=== PATIENT | female | born 1940 | race Two or more races ===

== ENCOUNTER 2019-11-09 09:52 | Inpatient (IN) | payer MEDICARE, OTHER ==
[~2019-11-09] VITALS: Ht 152.4 cm; Wt 98.9 kg
[2019-11-09] VITALS (17 sets, daily range): BP systolic 128–167; BP diastolic 55–92
--- NOTE | 2019-11-09 10:10 | NUR ---
[facility] to ER, facility called 911 - C/O SOB and hypoxia during PT treatment this morning. Patient a/ox4, vietnamese speaking. Was on an NRB on arrival, downgraded to 4lpm VIA NC with spo2 of 96%. Patient's breathing rapid and mild labored. Attached to the electronic device monitor. Vitals stable.
--- NOTE | 2019-11-09 10:11 | NUR ---
DR. SERRANO AT BEDSIDE FOR EVAL.
[2019-11-09] MEDS ORDERED: DULO60CA45 PO (10:20)
[2019-11-09] MEDS ORDERED: DEXL60CA3 PO (10:20)
[2019-11-09] MEDS ORDERED: CHOL10002 PO (10:20)
[2019-11-09] MEDS ORDERED: NEBI10TA2 PO (10:20)
[2019-11-09] MEDS ORDERED: CLON0.2T PO (10:20)
[2019-11-09] MEDS ORDERED: ATOR40TA PO (10:20)
[2019-11-09] MEDS ORDERED: AMLO10TA7 PO (10:20)
--- NOTE | 2019-11-09 10:20 | NUR ---
IV LINE ESTABLISHED ON LEFT AC G18, BLOOD DRAWN AND SENT TO LAB.
[2019-11-09 10:25] LABS: BASOPHILS # (AUTO) 0.1 /CMM (0.0-0.2); EOSINOPHILS % (AUTO) 2.4 % (0.0-6.0); HEMATOCRIT 25 % (33-45); HEMOGLOBIN 8.4 g/dL (11.5-14.8); LYMPHOCYTES % (AUTO) 19.4 % (20.0-44.0); MEAN CORPUSCULAR HGB CONC 33 g/dl (31.0-36.0); MEAN CORPUSCULAR VOLUME 87 fL (82-100); MONOCYTES # (AUTO) 0.9 /CMM (0.1-1.30); MONOCYTES % (AUTO) 8.6 % (2.0-12.0); NEUTROPHILS # (AUTO) 7.2 /CMM (1.8-8.9); NEUTROPHILS % (AUTO) 68.6 % (43.0-81.0); PLATELET COUNT (AUTO) 103 /CMM (150-450); RED BLOOD CELL COUNT(AUTO) 2.93 MIL/uL (4.0-5.2); WHITE BLOOD COUNT (AUTO) 10.5 K/uL (4.3-11.0)
[2019-11-09 10:38] LABS: CARBON DIOXIDE 33 mmol/L (21-32); CHLORIDE 98 mmol/L (98-107); CREATININE 3.1 mg/dL (0.6-1.3); GLUCOSE 150 mg/dL (74-106); POTASSIUM 4.3 mmol/L (3.5-5.1); SODIUM SERUM 137 mmol/L (136-145); UREA NITROGEN, BLOOD 53 mg/dL (7-18)
[2019-11-09] MEDS ORDERED: [UNRECOGNIZED DRUG - CODE] TD (10:42)
[2019-11-09] MEDS ORDERED: PANT40TA49 PO (10:42)
[2019-11-09] MEDS ORDERED: METO-357 PO (10:42)
[2019-11-09] MEDS ORDERED: FURO-144 PO (10:42)
[2019-11-09] MEDS ORDERED: PREG100C PO (10:42)
[2019-11-09] MEDS ORDERED: AMIN30LI27 PO (10:42)
[2019-11-09] MEDS ORDERED: APIX5TAB4 PO (10:42)
[2019-11-09] MEDS ORDERED: BISA-79 PO (10:42)
[2019-11-09] MEDS ORDERED: NITR0.4T48 SL (10:42)
[2019-11-09] MEDS ORDERED: BUSP10TA3 PO (10:42)
[2019-11-09] MEDS ORDERED: DOCU100C36 PO (10:42)
[2019-11-09] MEDS ORDERED: GABA-532 PO (10:42)
[2019-11-09] MEDS ORDERED: GLUC1KIT IM (10:42)
[2019-11-09] MEDS ORDERED: HYDR-4076 PO (10:42)
[2019-11-09] MEDS ORDERED: INSU100V39 SQ (10:43)
[2019-11-09] MEDS ORDERED: TRAM50TA2 PO (10:43)
[2019-11-09 10:50] LABS: ALANINE AMINOTRANSFERASE 14 U/L (12-78); ALBUMIN 2.8 g/dL (3.4-5.0); ALKALINE PHOSPHATASE 66 U/L (46-116); ASPARTATE AMINOTRANSFERASE 12 U/L (15-37); B-TYPE NATRIURETIC PEPTIDE 7104 PG/ML (0-125); BILIRUBIN,DIRECT 0.1 mg/dL (0.0-0.2); BILIRUBIN,TOTAL 0.4 mg/dL (0.2-1.0); TOTAL PROTEIN, SERUM 7.4 g/dL (6.4-8.2)
[2019-11-09 11:44] LABS: ABG BASE EXCESS 4.1 mmol/L; ABG OXYGEN SATURATION 93.1 % (92.0-98.5); ABG PCO2 57.3 mmHg (35.0-45.0); ABG PH 7.345 (7.350-7.450); ABG PO2 73.1 mmHg (75.0-100.0); AaDO2 117.1 mmHg; COHb 1.1 % (0.5-1.5); MetHb 0.4 % (0.0-1.5); O2Hb 91.7 % (94.0-97.0); SITE, ABG Right Radial; VENT MODE, BG N/C 4LPM
--- NOTE | 2019-11-09 11:45 | NUR ---
PAGED [facility].
--- NOTE | 2019-11-09 11:59 | NUR ---
CALLED NURSING SUP FOR YONY BED.
--- NOTE | 2019-11-09 12:10 | NUR ---
RAPID COVID SWAB DONE AND SENT TO LAB
--- NOTE | 2019-11-09 13:14 | NUR ---
YONY OVERFLOW: ICU 252
--- NOTE | 2019-11-09 13:24 | NUR ---
COVID RESULT: NEGATIVE
[2019-11-09] MEDS ORDERED: NITROGLYCERIN 0.4 MG/TAB BOTTLE SL PRN (13:30)
[2019-11-09] MEDS ORDERED: BISACODYL (5 MG) 5 MG TABLET.DR PO PRN (13:30)
[2019-11-09] MEDS ORDERED: TRAMADOL HCL 50 MG TABLET PO PRN (13:30)
--- NOTE | 2019-11-09 13:48 | NUR ---
REPORT GIVEN TO AZALEA HERCULES OF ICU
--- NOTE | 2019-11-09 14:00 | NUR ---
RECEIVED PATIENT FROM EMERGENCY DEPARTMENT IN BED. PATIENT ALERT & ORIENTED X3. PATIENT SHORT OF BREATH, SO INCREASED OXYGEN VIA NASAL CANULA TO 4 LITERS. SATURATING 94-98%. PATIENT ON BEDSIDE GAS FURNACE INSTALLER, ATRIAL FLUTTER NOTED WITH HEART RATE IN 80S. PATIENT LEFT ANTECUBITAL IV ACCESS INTACT, FLUSHED WELL. PATIENT SAFETY MEASURES MAINTAINED. CALL LIGHT WITHIN REACH. WILL CONTINUE TO MONITOR. VITAL SINGS ON ADMISSION- 99.2 TEMPERATURE, 18 RESPIRATION RATE, 96% OXYGEN SATURATION, 82 HEART RATE, 140/71 BLOOD PRESSURE. NO PAIN REPORTED AT THIS TIME
[2019-11-09] MEDS: PREGABALIN 100 MG CAPSULE PO SCH (16:10)
[2019-11-09] MEDS: GABAPENTIN 100 MG CAPSULE PO SCH (16:10)
[2019-11-09] MEDS ORDERED: APIXABAN 5 MG TABLET PO SCH (17:00)
[2019-11-09] MEDS ORDERED: hydrALAZINE HCL 25 MG TABLET PO SCH (17:00)
[2019-11-09] MEDS: APIXABAN 5 MG TABLET PO SCH (17:00)
[2019-11-09] MEDS: IPRATROPIUM BROMIDE 14 GM INHALER (or 12.9 GM) IH SCH (17:20)
[2019-11-09] MEDS ORDERED: BUMETANIDE INJ 8 MG in IV NS 0.9% 48 ML IV ONE (17:30)
--- NOTE | 2019-11-09 17:47 | NUR ---
PATIENT ELIQUIS HELD DUE TO LOW PLATELETS OF 103.
--- NOTE | 2019-11-09 18:55 | NUR ---
PATIENT IN BED. PATIENT ALERT & ORIENTED X3. PATIENT SHORT OF BREATH, SO INCREASED OXYGEN VIA NASAL CANULA TO 4 LITERS. SATURATING 94-98%. PATIENT ON BEDSIDE RECRUITING SPECIALIST, ATRIAL FLUTTER NOTED WITH HEART RATE IN 90S. PATIENT LEFT ANTECUBITAL IV ACCESS INTACT, FLUSHED WELL. PATIENT SAFETY MEASURES MAINTAINED. CALL LIGHT WITHIN REACH. WILL ENDORSE PLAN OF CARE TO ONCOMING SHIFT FOR CONTINUITY OF CARE
--- NOTE | 2019-11-09 19:30 | NUR ---
RN OPENING NOTES: Rec'd pt awake in bed A&Ox3, Greek speaking. On 4LPM NC tolerating well. No SOB or resp distress noted. Breathing even and unlabored. A-flutter w/ HR in 80s on tele monitor. LAC #18 patent and flushed. Dressing c/d/i. Bumex infusing at 10ml/hr. No pain noted at this time. Safety measures in place. Will continue to monitor.
[2019-11-09] MEDS ORDERED: FUROSEMIDE 40 MG/4 ML VIAL IV SCH (21:00)
[2019-11-09] MEDS: METOPROLOL SUCCINATE 50 MG TAB.SR.24H PO SCH (21:03)
[2019-11-09 21:27] LABS: FERRITIN 326 ng/mL (8-388); THYROID STIMULATING HORMONE 0.772 uIU/mL (0.358-3.74)
[2019-11-09 21:37] LABS: IRON, SERUM 54 ug/dl (50-175); TOTAL IRON BINDING CAPACITY 267 ug/dl (250-450)
[2019-11-10] VITALS (27 sets, daily range): BP systolic 116–183; BP diastolic 44–110
--- NOTE | 2019-11-10 00:21 | NUR ---
RN NOTE: Pt refused 0000 dose of Atrovent inhaler. Educated pt on risks and benefits and continues to refuse. Stated "I don't need it right now."
--- NOTE | 2019-11-10 03:18 | NUR ---
RN NOTE: Pt refused bed bath and linen change at this time.
[2019-11-10 04:20] LABS: BASOPHILS # (AUTO) 0.1 /CMM (0.0-0.2); BASOPHILS % (AUTO) 0.6 % (0.0-2.0); EOSINOPHILS % (AUTO) 1.4 % (0.0-6.0); HEMATOCRIT 25 % (33-45); LYMPHOCYTES # (AUTO) 1.4 /CMM (0.8-4.8); LYMPHOCYTES % (AUTO) 15.9 % (20.0-44.0); MEAN CORPUSCULAR HGB CONC 33 g/dl (31.0-36.0); MEAN CORPUSCULAR VOLUME 86 fL (82-100); MONOCYTES # (AUTO) 0.8 /CMM (0.1-1.30); MONOCYTES % (AUTO) 8.9 % (2.0-12.0); NEUTROPHILS # (AUTO) 6.4 /CMM (1.8-8.9); NEUTROPHILS % (AUTO) 73.2 % (43.0-81.0); PLATELET COUNT (AUTO) 86 /CMM (150-450); RED BLOOD CELL COUNT(AUTO) 2.84 MIL/uL (4.0-5.2); WHITE BLOOD COUNT (AUTO) 8.8 K/uL (4.3-11.0)
[2019-11-10 04:35] LABS: IRON, SERUM 26 ug/dl (50-175); TOTAL IRON BINDING CAPACITY 203 ug/dl (250-450)
[2019-11-10 04:41] LABS: ALANINE AMINOTRANSFERASE 13 U/L (12-78); ALBUMIN 2.6 g/dL (3.4-5.0); ALKALINE PHOSPHATASE 62 U/L (46-116); ASPARTATE AMINOTRANSFERASE 11 U/L (15-37); BILIRUBIN,TOTAL 0.4 mg/dL (0.2-1.0); CALCIUM, SERUM 8.1 mg/dL (8.5-10.1); CARBON DIOXIDE 33 mmol/L (21-32); CHLORIDE 99 mmol/L (98-107); CREATININE 2.7 mg/dL (0.6-1.3); GLUCOSE 174 mg/dL (74-106); MAGNESIUM 2.2 mg/dL (1.8-2.4); PHOSPHORUS 3.8 mg/dL (2.5-4.9); POTASSIUM 4.6 mmol/L (3.5-5.1); SODIUM SERUM 139 mmol/L (136-145); TOTAL PROTEIN, SERUM 6.9 g/dL (6.4-8.2); UREA NITROGEN, BLOOD 50 mg/dL (7-18)
[2019-11-10 04:51] LABS: CREATINE KINASE, TOTAL 27 U/L (26-192); FERRITIN 318 ng/mL (8-388)
[2019-11-10] MEDS: IPRATROPIUM BROMIDE 14 GM INHALER (or 12.9 GM) IH SCH ×4 (06:22→17:12)
--- NOTE | 2019-11-10 07:04 | NUR ---
RN CLOSING NOTES: Pt remains stable throughout shift. On 4LPM NC tolerating well. No SOB or resp distress noted throughout shift. Breathing even and unlabored. No acute changes noetd throughout shift. SR w/ PVC's on tele monitor. LAC #18 patent and flushed. Dressings c/d/i. Kept clean/dry. All meds given as ordered. Safety measures in place. Will endorse to oncoming nurse for SCARLET.
--- NOTE | 2019-11-10 07:26 | NUR ---
WOUND CARE CONSULT: REVIEWED CHART, NURSING DOCUMENTATION AND PHOTOS WHICH INDICATE RASH TO PERINEAL AREA AND SKIN FOLDS, PRESENT ON ADMISSION. PT IS ON LEENA ISOFLEX LOW AIRLOSS BED. ALL SKIN PROTECTION AND SKIN CARE RECOMMENDATIONS DISCUSSED WITH NURSING STAFF. WILL SEE PRN. IN AGREEMENT WITH PLAN OF CARE.
[2019-11-10] MEDS: FUROSEMIDE 100 MG/10 ML VIAL IV SCH ×3 (07:30→15:30)
[2019-11-10] MEDS ORDERED: Z GUARD REMEDY 2 OZ OINT TP PRN (07:30)
--- NOTE | 2019-11-10 07:30 | NUR ---
rn notes received patient, asleep but easily awaken by verbal stimuli. expresses self best in Indonesian/Canadian language. with oxygen support via nasal cannula at 4lpm. sating 91-93%. no signs of labored breathing noted. sinus rhythm on the monitor with hr on the 80S. iv line on the left ac, in place and is flushing well, bloody. patient encourage to use call light to ask for help/assistance. safety measures observed and maintained. call light placed within reach. will continue to monitor patient accordingly
[2019-11-10] MEDS ORDERED: busPIRone HCL 10 MG TABLET PO SCH (09:00)
[2019-11-10] MEDS: GABAPENTIN 100 MG CAPSULE PO SCH ×3 (09:48→17:00)
[2019-11-10] MEDS: METOPROLOL SUCCINATE 50 MG TAB.SR.24H PO SCH ×2 (09:49→21:11)
[2019-11-10] MEDS: PANTOPRAZOLE 40 MG TABLET.DR PO SCH (09:49)
[2019-11-10] MEDS: AMLODIPINE BESYLATE 10 MG TABLET PO SCH (09:49)
[2019-11-10] MEDS: PREGABALIN 100 MG CAPSULE PO SCH ×2 (09:49→17:00)
[2019-11-10] MEDS: hydrALAZINE HCL 25 MG TABLET PO SCH ×3 (09:50→17:00)
[2019-11-10] MEDS: DOCUSATE SODIUM 100 MG CAPSULE PO SCH (09:50)
[2019-11-10] MEDS: CLOTRIMAZOLE 1% 15 GM TUBE TP SCH ×2 (09:50→17:15)
[2019-11-10] MEDS: Z GUARD REMEDY 2 OZ OINT TP SCH (09:51)
[2019-11-10] MEDS: APIXABAN 5 MG TABLET PO SCH ×2 (09:59→17:07)
[2019-11-10] MEDS: busPIRone 5 MG TABLET PO SCH (11:49)
[2019-11-10] MEDS: SOD FERRIC GLUC 125 MG in IV NS 0.9% 100 ML IV SCH (14:55)
[2019-11-10] MEDS ORDERED: FUROSEMIDE 100 MG/10 ML VIAL IV ONE (17:00)
[2019-11-10] MEDS ORDERED: IV NS 0.9% 250 ML IV PRN (17:00)
--- NOTE | 2019-11-10 19:54 | NUR ---
ELECTRIC MOTOR REBUILDER. INITIAL ASSESSMENT. RECEIVED THE PT REST ON THE BED. AWAKE, CONFUSED. OXYGEN 4L VIA NASAL CANNUL;A. SAT 94%. WILD ANIMAL CARETAKER SHOWING NSR. IV RT UPPER ARM MID LINE. SALINE LOCK. FC PATENT. URINE DRAINING. HOB ELEVATED. WILL CONTINUE TO MONITOR VITALS.
--- NOTE | 2019-11-10 22:00 | NUR ---
curriculum coordinator. pt is follow commands. confused
[2019-11-11] VITALS (15 sets, daily range): BP systolic 92–145; BP diastolic 45–79
--- NOTE | 2019-11-11 | NUR ---
agricultural education teacher. no changes. will continue to monitor
[2019-11-11] MEDS: IPRATROPIUM BROMIDE 14 GM INHALER (or 12.9 GM) IH SCH ×4 (00:10→17:05)
--- NOTE | 2019-11-11 03:00 | NUR ---
agricultural education teacher. lab called for covid test result negative
[2019-11-11 05:22] LABS: ALANINE AMINOTRANSFERASE 13 U/L (12-78); ALBUMIN 2.7 g/dL (3.4-5.0); ALKALINE PHOSPHATASE 60 U/L (46-116); ASPARTATE AMINOTRANSFERASE 12 U/L (15-37); BASOPHILS # (AUTO) 0.1 /CMM (0.0-0.2); BASOPHILS % (AUTO) 0.5 % (0.0-2.0); BILIRUBIN,TOTAL 0.5 mg/dL (0.2-1.0); CALCIUM, SERUM 8.5 mg/dL (8.5-10.1); CARBON DIOXIDE 35 mmol/L (21-32); CHLORIDE 99 mmol/L (98-107); CREATININE 2.6 mg/dL (0.6-1.3); EOSINOPHILS % (AUTO) 3.9 % (0.0-6.0); GLUCOSE 193 mg/dL (74-106); HEMATOCRIT 23 % (33-45); HEMOGLOBIN 7.5 g/dL (11.5-14.8); LYMPHOCYTES # (AUTO) 1.9 /CMM (0.8-4.8); LYMPHOCYTES % (AUTO) 18.7 % (20.0-44.0); MEAN CORPUSCULAR HGB CONC 33 g/dl (31.0-36.0); MEAN CORPUSCULAR VOLUME 86 fL (82-100); MONOCYTES # (AUTO) 1.3 /CMM (0.1-1.30); MONOCYTES % (AUTO) 13.3 % (2.0-12.0); NEUTROPHILS # (AUTO) 6.3 /CMM (1.8-8.9); NEUTROPHILS % (AUTO) 63.6 % (43.0-81.0); PHOSPHORUS 2.8 mg/dL (2.5-4.9); PLATELET COUNT (AUTO) 98 /CMM (150-450); POTASSIUM 3.9 mmol/L (3.5-5.1); RED BLOOD CELL COUNT(AUTO) 2.65 MIL/uL (4.0-5.2); SODIUM SERUM 139 mmol/L (136-145); TOTAL PROTEIN, SERUM 6.9 g/dL (6.4-8.2); UREA NITROGEN, BLOOD 45 mg/dL (7-18)
[2019-11-11 05:59] LABS: LYMPHOCYTES % (MANUAL) 15 % (16-48); MONOCYTES % (MANUAL) 10 % (0-11.0)
[2019-11-11 06:00] LABS: EOSINOPHILS % (MANUAL) 3 % (0-4); NEUTROPHILS % (MANUAL) 72 (42-76)
--- NOTE | 2019-11-11 06:07 | NUR ---
icu staff nurse. am care. oral care, bed bath given. linen changed. remaining same oxygen tolerated well. sat 94%. jointer machine showing nsr. iv rt upper arm mid line. saline lock. hob elevated. fc patent urine draining. turn and reposition q2h. will continue to monitor vitals.
[2019-11-11] MEDS: GABAPENTIN 100 MG CAPSULE PO SCH ×3 (08:28→16:11)
[2019-11-11] MEDS: hydrALAZINE HCL 25 MG TABLET PO SCH ×3 (08:28→16:54)
[2019-11-11] MEDS: FUROSEMIDE 100 MG/10 ML VIAL IV SCH ×3 (08:28→15:12)
[2019-11-11] MEDS: PREGABALIN 100 MG CAPSULE PO SCH ×2 (08:29→16:11)
[2019-11-11] MEDS: AMLODIPINE BESYLATE 10 MG TABLET PO SCH (08:29)
[2019-11-11] MEDS: busPIRone 5 MG TABLET PO SCH (08:29)
[2019-11-11] MEDS: DOCUSATE SODIUM 100 MG CAPSULE PO SCH (08:29)
[2019-11-11] MEDS: METOPROLOL SUCCINATE 50 MG TAB.SR.24H PO SCH ×2 (08:29→21:00)
[2019-11-11] MEDS: PANTOPRAZOLE 40 MG TABLET.DR PO SCH (08:29)
[2019-11-11] MEDS: APIXABAN 5 MG TABLET PO SCH ×2 (08:30→16:23)
[2019-11-11] MEDS: CLOTRIMAZOLE 1% 15 GM TUBE TP SCH ×2 (09:25→16:25)
[2019-11-11] MEDS: Z GUARD REMEDY 2 OZ OINT TP SCH (09:25)
[2019-11-11 10:16] LABS: PTH, INTACT 116 pg/mL (15-65)
--- NOTE | 2019-11-11 11:00 | NUR ---
REPORT GIVEN TO MARYJANE HERCULES AND HER ORIENTEE FOR TRANSFER TO ROOM 112-2.
--- NOTE | 2019-11-11 11:40 | NUR ---
PRIOR TO TRANSFER TO ROOM 112-2 RN AND SHELL SHOP SUPERVISOR CHANGED FITTED SHEET AND BED PAD UNDER PATIENT. PT WAS CONFUSED AND COMBATIVE WITH STAFF, INSISTING THAT SHE IS GOING HOME AND WANTS OUT OF THE BED. PT REORIENTED WITHOUT SUCCESS. MARYJANE INFORMED OF PT COMBATIVENESS AND THAT PT HAS A NEW ORDER FOR CONTINUOUS PULSE OX. IF PATIENT TAKES HER O2 OFF HER SATS DROP DOWN TO THE 60'S. CARE OF PATIENT TURNED OVER TO MARYJANE HERCULES AT 1140.
--- NOTE | 2019-11-11 11:51 | NUR ---
RECEIVED REPORT FROM RN AND RECEIVED PT IN YONY. ON 4L/MIN NC. TOLERATING WELL. MITTENS ON PATIENT ATTEMPTS TO PULL OUT LINES AND TUBING. A/OX2 AND CONFUSED ON SITUATION. WILL MONITOR AND ASSIST WITH FEEDNIG. VS WNL. WILL CONTINUE CARE. TELE LEADS ON. REDNESS IN BREAST AND ABDOMEN FOLDS NOTED. ALL HOSPITAL SAFETY PRECAUTIONS IMPLEMENTED.
[2019-11-11] MEDS: SOD FERRIC GLUC 125 MG in IV NS 0.9% 100 ML IV SCH (14:11)
--- NOTE | 2019-11-11 15:27 | NUR ---
PATIENT WAS YELLING. REMOVING NASAL CANNULA. FOUND HER FACE ALMOST MOYER IN COLOR. REORIENT REPEATEDLY WITH NO COMPLIANCE. PATIENT WAS BEING COMBATIVE. INFORMED DR PALENCIA. GOT AN ORDER FOR BILATERAL SOFT WRIST RESTRAINTS.
--- NOTE | 2019-11-11 18:54 | NUR ---
PT ASLEEP IN BED WITH HOB ELEVATED. RESPIRATIONS EVEN AND UNLABORED. NC ON 4L /MIN. TOLERATING WELL. PT REMAINS CONFUSED. REORIENTED FREQUENTLY TO NO SUCCESS. SR ON TELE. NO BM. REDNESS IN BREAST AND ABDOMEN FOLDS. SOFT WRIST RESTRAINTS ON BILATERAL PER ORDERS. ASSESS PT STATUS AND BILATERAL WRIST Q15. NO REDNESS OR IRRITATION FROM RESTRAINTS. THEO MIDLINE INTACT, DRESSING DRY AND INTACT. NO REDNESS OR SWELLING. ALL HOSPITAL SAFETY PRECAUTIONS IMPLEMENTED. WILL ENDORSE PLAN TO PM RN.
--- NOTE | 2019-11-11 20:00 | NUR ---
RN OPENING NOTE PT RECEIVED IN BED A/A/O X2 AND FOLLOWS COMMANDS. PT IS ON 4L VIA NC SATING 96%. PT HAS UNLABORED BREATHING. PT ON TELE MONITOR SHOWING SR IN 80s. PT HAS [facility] CATHETER DRAINING YELLOW URINE. SAFETY MEASURES IN PLACE, BED AT LOWEST POSITION,LOCKED,SIDE RAILS UP X2, HOB ELEVATED, CALL LIGHT IN REACH.
--- NOTE | 2019-11-11 21:00 | NUR ---
RN NOTE PT REFUSED TO TAKE METOPROLOL.
[2019-11-12] VITALS: BP 142/65
[2019-11-12] MEDS: IPRATROPIUM BROMIDE 14 GM INHALER (or 12.9 GM) IH SCH ×4 (00:21→17:55)
[2019-11-12 04:00] VITALS: BP 110/45
--- NOTE | 2019-11-12 07:11 | NUR ---
RN CLOSING NOTE PT REMAINED STABLE DURING MY SHIFT, REPORT GIVEN TO INCOMING SHIFT FOR SCARLET.
[2019-11-12 07:25] LABS: BASOPHILS # (AUTO) 0.1 /CMM (0.0-0.2); BASOPHILS % (AUTO) 0.6 % (0.0-2.0); EOSINOPHILS % (AUTO) 5.9 % (0.0-6.0); HEMATOCRIT 25 % (33-45); HEMOGLOBIN 8.1 g/dL (11.5-14.8); LYMPHOCYTES % (AUTO) 20.3 % (20.0-44.0); MEAN CORPUSCULAR HGB CONC 33 g/dl (31.0-36.0); MEAN CORPUSCULAR VOLUME 86 fL (82-100); MONOCYTES # (AUTO) 1.3 /CMM (0.1-1.30); MONOCYTES % (AUTO) 12.9 % (2.0-12.0); NEUTROPHILS % (AUTO) 60.3 % (43.0-81.0); PLATELET COUNT (AUTO) 134 /CMM (150-450); RED BLOOD CELL COUNT(AUTO) 2.86 MIL/uL (4.0-5.2)
[2019-11-12 08:00] VITALS: BP 138/80
[2019-11-12] MEDS: busPIRone 5 MG TABLET PO SCH (08:25)
[2019-11-12] MEDS: PANTOPRAZOLE 40 MG TABLET.DR PO SCH (08:25)
[2019-11-12] MEDS: DOCUSATE SODIUM 100 MG CAPSULE PO SCH (08:25)
[2019-11-12] MEDS: GABAPENTIN 100 MG CAPSULE PO SCH ×3 (08:25→17:25)
[2019-11-12] MEDS: AMLODIPINE BESYLATE 10 MG TABLET PO SCH (08:26)
[2019-11-12] MEDS: PREGABALIN 100 MG CAPSULE PO SCH ×2 (08:26→17:25)
[2019-11-12] MEDS: hydrALAZINE HCL 25 MG TABLET PO SCH ×3 (08:26→17:24)
[2019-11-12] MEDS: METOPROLOL SUCCINATE 50 MG TAB.SR.24H PO SCH ×2 (08:26→21:50)
[2019-11-12] MEDS: APIXABAN 5 MG TABLET PO SCH ×2 (08:28→17:25)
[2019-11-12] MEDS: Z GUARD REMEDY 2 OZ OINT TP SCH (08:29)
[2019-11-12] MEDS: CLOTRIMAZOLE 1% 15 GM TUBE TP SCH ×2 (08:29→17:55)
[2019-11-12 08:39] LABS: ALANINE AMINOTRANSFERASE 15 U/L (12-78); ALBUMIN 2.8 g/dL (3.4-5.0); ALKALINE PHOSPHATASE 65 U/L (46-116); ASPARTATE AMINOTRANSFERASE 16 U/L (15-37); BILIRUBIN,TOTAL 0.4 mg/dL (0.2-1.0); CARBON DIOXIDE 37 mmol/L (21-32); CHLORIDE 98 mmol/L (98-107); CREATININE 2.6 mg/dL (0.6-1.3); GLUCOSE 209 mg/dL (74-106); PHOSPHORUS 3.1 mg/dL (2.5-4.9); POTASSIUM 3.8 mmol/L (3.5-5.1); SODIUM SERUM 142 mmol/L (136-145); TOTAL PROTEIN, SERUM 7.3 g/dL (6.4-8.2); UREA NITROGEN, BLOOD 43 mg/dL (7-18)
[2019-11-12 12:00] VITALS: BP 145/65
[2019-11-12] MEDS: SOD FERRIC GLUC 125 MG in IV NS 0.9% 100 ML IV SCH (14:29)
[2019-11-12 16:00] VITALS: BP 134/67
--- NOTE | 2019-11-12 19:25 | NUR ---
STAFF EDITOR OPEN NOTES PT IS SLEEPING IN BED. ON 4L NASAL CANULA, NO SOB/ ACUTE RESPIRATORY DISTRESS NOTED. NO COMPLAINTS OF PAIN AT THE MOMENT. BED IS IN LOWEST LOCKED POSITION WITH SIDE RAILS UP X3, SEMI FOWLERS. CALL LIGHT IS WITHIN REACH. WILL CONTINUE TO MONITOR.
[2019-11-12 20:00] VITALS: BP 140/73
--- NOTE | 2019-11-12 22:05 | NUR ---
SCREW SUPERVISOR NOTES INFORMED MD THAT PT HAS HISTORY OF DIABETES. MD ORDERED MODERATE SLIDING SCALE. ORDER NOTED AND CARRIED OUT.
[2019-11-12] MEDS ORDERED: DEXTROSE 50%-WATER 50 ML DISP.SYRIN IV PRN (22:30)
[2019-11-12] MEDS: BLOOD SUGAR DIAGNOSTIC 1 EACH STRIP VI SCH (23:28)
[2019-11-12] MEDS: *INSULIN REGULAR(HUMULIN R)HUM 100 UNIT/ML VIAL SQ PRN (23:30)
[2019-11-13] VITALS: BP 118/61
[2019-11-13 04:00] VITALS: BP 100/56
[2019-11-13] MEDS: BLOOD SUGAR DIAGNOSTIC 1 EACH STRIP VI SCH ×4 (06:46→21:21)
[2019-11-13] MEDS: INSULIN REGULAR, HUMAN 100 UNIT/ML 3 ML VIAL SQ PRN ×3 (06:48→22:21)
--- NOTE | 2019-11-13 07:04 | NUR ---
CHANGE MANAGEMENT DIRECTOR CLOSE NOTES PATIENT IS LAYING IN BED. A/O X2, URUGUAYAN/ PERSIAN SPEAKING. ON 4L NASAL CANULA, NO SOB/ ACUTE RESPIRATORY DISTRESS NOTED. MIDLINE IN RIGHT UPPERARM IS PATENT AND INTACT. [facility]I CATHETER IN PLACE 300 ML OUTPUT. ALL ACCUCHECKS DONE. PT DENIES ANY PAIN AT THE MOMENT. BED IS IN LOWEST LOCKED POSITION WITH SIDE RAILS UP X3, SEMI FOWLERS. CALL LIGHT IS WITHIN REACH. WILL ENDORSE TO AM NURSE.
--- NOTE | 2019-11-13 07:20 | NUR ---
RN OPENING NOTES RECEIVED PATIENT SLEEPING IN BED. NOT IN ANY FORM OF DISTRESS. ON 4LPM O2 NASAL CANULA, NO SOB. NO COMPLAINTS OF PAIN AT THE MOMENT. IV ACCESS INTACT AND PATENT. BED IS IN LOWEST LOCKED POSITION WITH SIDE RAILS UP X3, SEMI FOWLERS. BED ALARM ON,CALL LIGHT IS WITHIN REACH. WILL CONTINUE TO MONITOR.
[2019-11-13 07:32] LABS: CARBON DIOXIDE 39 mmol/L (21-32); CHLORIDE 99 mmol/L (98-107); CREATININE 2.4 mg/dL (0.6-1.3); GLUCOSE 265 mg/dL (74-106); MAGNESIUM 2.2 mg/dL (1.8-2.4); PHOSPHORUS 3.9 mg/dL (2.5-4.9); SODIUM SERUM 143 mmol/L (136-145); UREA NITROGEN, BLOOD 42 mg/dL (7-18)
[2019-11-13 07:34] LABS: BASOPHILS # (AUTO) 0.1 /CMM (0.0-0.2); BASOPHILS % (AUTO) 0.8 % (0.0-2.0); EOSINOPHILS % (AUTO) 5.7 % (0.0-6.0); HEMATOCRIT 24 % (33-45); HEMOGLOBIN 7.8 g/dL (11.5-14.8); LYMPHOCYTES % (AUTO) 18.6 % (20.0-44.0); MEAN CORPUSCULAR HGB CONC 32 g/dl (31.0-36.0); MEAN CORPUSCULAR VOLUME 86 fL (82-100); MONOCYTES # (AUTO) 1.2 /CMM (0.1-1.30); NEUTROPHILS # (AUTO) 6.7 /CMM (1.8-8.9); NEUTROPHILS % (AUTO) 63.9 % (43.0-81.0); PLATELET COUNT (AUTO) 193 /CMM (150-450); RED BLOOD CELL COUNT(AUTO) 2.82 MIL/uL (4.0-5.2); WHITE BLOOD COUNT (AUTO) 10.5 K/uL (4.3-11.0)
[2019-11-13 08:06] LABS: *SPE A/G RATIO 0.8 (0.7-1.7); *SPE ALBUMIN 2.6 g/dL (2.9-4.4); *SPE ALPHA-1-GLOBULIN 0.5 g/dL (0.0-0.4); *SPE ALPHA-2-GLOBULIN 0.9 g/dL (0.4-1.0); *SPE BETA GLOBULIN 1.1 g/dL (0.7-1.3); *SPE GLOBULIN, TOTAL 3.4 g/dL (2.2-3.9); *SPE M-SPIKE Not Observed g/dL (Not Observed); *SPEGAMMA GLOBULIN 0.8 g/dL (0.4-1.8)
[2019-11-13 08:18] VITALS: BP 122/53
[2019-11-13] MEDS: DOCUSATE SODIUM 100 MG CAPSULE PO SCH (08:22)
[2019-11-13] MEDS: PREGABALIN 100 MG CAPSULE PO SCH ×2 (08:23→16:40)
[2019-11-13] MEDS: PANTOPRAZOLE 40 MG TABLET.DR PO SCH (08:23)
[2019-11-13] MEDS: AMLODIPINE BESYLATE 10 MG TABLET PO SCH (08:23)
[2019-11-13] MEDS: busPIRone 5 MG TABLET PO SCH (08:23)
[2019-11-13] MEDS: METOPROLOL SUCCINATE 50 MG TAB.SR.24H PO SCH ×2 (08:23→21:00)
[2019-11-13] MEDS: GABAPENTIN 100 MG CAPSULE PO SCH ×3 (08:27→16:41)
[2019-11-13] MEDS: hydrALAZINE HCL 25 MG TABLET PO SCH ×3 (08:27→16:41)
[2019-11-13] MEDS: CLOTRIMAZOLE 1% 15 GM TUBE TP SCH ×2 (08:29→18:07)
[2019-11-13] MEDS: APIXABAN 5 MG TABLET PO SCH ×2 (08:36→16:40)
[2019-11-13] MEDS: Z GUARD REMEDY 2 OZ OINT TP SCH (08:37)
[2019-11-13 08:53] LABS: BAND % (MANUAL) 2 % (0.0-5.0); EOSINOPHILS % (MANUAL) 4 % (0-4); LYMPHOCYTES % (MANUAL) 20 % (16-48); MONOCYTES % (MANUAL) 12 % (0-11.0); NEUTROPHILS % (MANUAL) 62 (42-76)
[2019-11-13] MEDS: FUROSEMIDE 40 MG/4 ML VIAL IV SCH ×3 (11:57→19:54)
[2019-11-13] MEDS: IPRATROPIUM BROMIDE 14 GM INHALER (or 12.9 GM) IH SCH ×2 (12:00→17:59)
--- NOTE | 2019-11-13 13:39 | NUR ---
rn notes Gave cecilia's (daughter) number to Dr Tejada. Told MD that daughter wants to talk to him
[2019-11-13] MEDS: SOD FERRIC GLUC 125 MG in IV NS 0.9% 100 ML IV SCH (15:59)
[2019-11-13 16:00] VITALS: BP 122/73
--- NOTE | 2019-11-13 19:17 | NUR ---
RN CLOSING NOTES PATIENT IN STABLE CONDITION. ALL NEEDS ATTENDED AND PROVIDED. ALL DUE MEDS GIVEN ORDERED. KEPT PATIENT SKIN CLEAN AND DRY. TURNED AND REPOSITIONED EVERY 2HRS AND NEEDED. BED IN LOW/LOCKED POSITION, SIDRAILS UPX2, HOB ELEVATED, CALL LIGHT IN REACH. ENDORSED TO DELISA THOMPSON ACCORDINGLY
--- NOTE | 2019-11-13 19:40 | NUR ---
WATER FILTERER HELPER NOTE; PATIENT RESTING IN BED, NO ACUTE DISTRESS NOTED. BREATHING EVEN AND UNLABORED, NO SOB NOTED. MIDLINE TO THEO IN PLACE. [place] CATHETER IN PLACE, DRAINING CLEAR YELLOW URINE. BED LOCKED AND IN LOWEST POSITION, CALL LIGHT IN REACH. WILL CONTINUE TO MONITOR.
[2019-11-13 20:05] VITALS: BP 107/76
--- NOTE | 2019-11-13 22:30 | NUR ---
SUPPLY CHAIN PROGRAM MANAGER NOTE: PATIENT BLOOD SUGAR LEVEL 195MG/DL, PATIENT TO GET 3 UNITS OF INSULIN PER SLIDING SCALE. NO S/S OF HYPER/HYPOGLYCEMIA NOTED. WILL CONTINUE TO MONITOR.
[2019-11-14 00:40] VITALS: BP 114/58
[2019-11-14] MEDS: IPRATROPIUM BROMIDE 14 GM INHALER (or 12.9 GM) IH SCH ×2 (00:44→06:01)
[2019-11-14 04:45] VITALS: BP 134/72
--- NOTE | 2019-11-14 06:15 | NUR ---
DYE MACHINE OPERATOR NOTE: PATIENT RESTING IN BED, NO ACUTE DISTRESS NOTED. BREATHING EVEN AND UNLABORED, NO SOB NOTED. MIDLINE TO THEO IN PLACE. [facility] CATHETER IN PLACE, DRAINED 800ML OF CLEAR YELLOW URINE. PATIENT BLOOD SUGAR LEVEL 189MG/DL, TO RECEIVE 3 UNITS OF INSULIN PER SLIDING SCALE. NO S/S OF HYPER/HYPOGLYCEMIA. BED LOCKED AND IN LOWEST POSITION, CALL LIGHT IN REACH. WILL ENDORSE TO DAY NURSE TO CONTINUE WITH PLAN OF CARE.
[2019-11-14] MEDS: BLOOD SUGAR DIAGNOSTIC 1 EACH STRIP VI SCH ×3 (06:43→17:13)
[2019-11-14] MEDS: INSULIN REGULAR, HUMAN 100 UNIT/ML 3 ML VIAL SQ PRN ×2 (06:43→17:14)
[2019-11-14 06:44] LABS: CALCIUM, SERUM 9.1 mg/dL (8.5-10.1); CARBON DIOXIDE 37 mmol/L (21-32); CHLORIDE 99 mmol/L (98-107); CREATININE 2.5 mg/dL (0.6-1.3); GLUCOSE 192 mg/dL (74-106); POTASSIUM 3.7 mmol/L (3.5-5.1); SODIUM SERUM 143 mmol/L (136-145); UREA NITROGEN, BLOOD 40 mg/dL (7-18)
[2019-11-14 07:13] LABS: BASOPHILS # (AUTO) 0.1 /CMM (0.0-0.2); BASOPHILS % (AUTO) 0.6 % (0.0-2.0); EOSINOPHILS % (AUTO) 5.4 % (0.0-6.0); HEMATOCRIT 25 % (33-45); LYMPHOCYTES # (AUTO) 2.1 /CMM (0.8-4.8); LYMPHOCYTES % (AUTO) 20.5 % (20.0-44.0); MEAN CORPUSCULAR HGB CONC 33 g/dl (31.0-36.0); MEAN CORPUSCULAR VOLUME 87 fL (82-100); MONOCYTES # (AUTO) 1.1 /CMM (0.1-1.30); MONOCYTES % (AUTO) 11.2 % (2.0-12.0); NEUTROPHILS # (AUTO) 6.3 /CMM (1.8-8.9); NEUTROPHILS % (AUTO) 62.3 % (43.0-81.0); PLATELET COUNT (AUTO) 245 /CMM (150-450); RED BLOOD CELL COUNT(AUTO) 2.81 MIL/uL (4.0-5.2)
[2019-11-14 08:00] VITALS: BP 114/55
[2019-11-14] MEDS: AMLODIPINE BESYLATE 10 MG TABLET PO SCH (09:00)
[2019-11-14] MEDS: hydrALAZINE HCL 25 MG TABLET PO SCH ×3 (09:00→17:12)
[2019-11-14] MEDS: DOCUSATE SODIUM 100 MG CAPSULE PO SCH (09:04)
[2019-11-14] MEDS: GABAPENTIN 100 MG CAPSULE PO SCH ×3 (09:05→17:09)
[2019-11-14] MEDS: PREGABALIN 100 MG CAPSULE PO SCH ×2 (09:06→17:09)
[2019-11-14] MEDS: METOPROLOL SUCCINATE 50 MG TAB.SR.24H PO SCH (09:06)
[2019-11-14] MEDS: PANTOPRAZOLE 40 MG TABLET.DR PO SCH (09:06)
[2019-11-14] MEDS: busPIRone 5 MG TABLET PO SCH (09:06)
[2019-11-14] MEDS: APIXABAN 5 MG TABLET PO SCH ×2 (09:07→17:10)
[2019-11-14] MEDS: Z GUARD REMEDY 2 OZ OINT TP SCH (09:08)
[2019-11-14] MEDS: CLOTRIMAZOLE 1% 15 GM TUBE TP SCH ×2 (09:08→17:12)
--- NOTE | 2019-11-14 09:28 | NUR ---
RN NOTES REPORT GIVEN TO PRINCE FOR SCARLET
--- NOTE | 2019-11-14 09:30 | NUR ---
RN NOTES DUE MEDS GIVEN
[2019-11-14] MEDS: POTASSIUM CHLORIDE 20 MEQ TAB.PRT.SR PO SCH ×2 (11:48→12:05)
[2019-11-14] MEDS: FUROSEMIDE 100 MG/10 ML VIAL IV SCH ×2 (11:48→15:22)
[2019-11-14 12:00] VITALS: BP 114/55
[2019-11-14] MEDS: *INSULIN REGULAR(HUMULIN R)HUM 100 UNIT/ML VIAL SQ PRN (12:07)
--- NOTE | 2019-11-14 13:23 | NUR ---
dc back to [facility] today [phone]. Spoke with grandrachele Walter [phone] and patient- aware and agred with dc plan. Spoke with Re-admaubrey at [facility] , accepted patient. Ambulance hot die picker 4:30pm Addendum: 11/14/19 at 1324 by ANGELITO LANDON RN Amended: Links added.
--- NOTE | 2019-11-14 14:02 | NUR ---
D/C [facility] PER MD CASAS TO D/C [facility] PRIOR TO D/C. NOTED AND CARRIED OUT. [facility] WAS REMOVED PT. TOLERATED WELL.
[2019-11-14] MEDS: SOD FERRIC GLUC 125 MG in IV NS 0.9% 100 ML IV SCH (14:57)
--- NOTE | 2019-11-14 15:09 | NUR ---
BODY CHECK/INVENTORY BODY CHECK DONE. PICTURES TAKEN. INVENTORY DONE. PT HAS NO BELONGINGS.
--- NOTE | 2019-11-14 15:16 | NUR ---
REPORT TO SNF REPORT GIVEN TO JANES HERCULES AT [facility] [phone] FOR CONTINUITY OF CARE.
[2019-11-14 17:12] VITALS: BP 114/59
--- NOTE | 2019-11-14 18:26 | NUR ---
D/C TO SNF PT PICKED UP BY 2 NEUROPSYCHIATRIST IN STABLE CONDITION. NO BELONGINGS. REPORT GIVEN TO NEUROPSYCHIATRIST. NOT IN ANY FORM OF DISTRESS. ON 4LPM O2 NASAL CANULA, NO SOB. NO COMPLAINTS OF PAIN AT THE MOMENT. IV ACCESS REMOVED. NO BLEEDING NOTED. LEFT IN STABLE CONDITION.
== END 2019-11-14 17:50 | DRG 291 ==
LOC: ER 10:05 → ICU 13:44 → TELE-TD 11-11 11:35 → TELE1 11-12 07:57 → MEDSG1 11-14 13:53
PROVIDERS: ADMIT Internal Medicine; ATTEND Nurse Practitioner Acute Care
PROC: 05H533Z Insertion of Infusion Device into Right Subclavian Vein, Percutaneous Approach (ICD-10-PCS; principal; 2019-11-10)
PROC: B546ZZA Ultrasonography of Right Subclavian Vein, Guidance (ICD-10-PCS; 2019-11-10)
DX: I13.0 Hypertensive heart and chronic kidney disease with heart failure and stage 1 through stage 4 chronic kidney disease, or unspecified chronic kidney disease (principal); N17.0 Acute kidney failure with tubular necrosis; E43 Unspecified severe protein-calorie malnutrition; J96.01 Acute respiratory failure with hypoxia; J96.02 Acute respiratory failure with hypercapnia; I50.33 Acute on chronic diastolic (congestive) heart failure; D68.69 Other thrombophilia; E66.2 Morbid (severe) obesity with alveolar hypoventilation; Z68.41 Body mass index [BMI] 40.0-44.9, adult; I48.92 Unspecified atrial flutter; J44.1 Chronic obstructive pulmonary disease with (acute) exacerbation; I48.91 Unspecified atrial fibrillation; E88.09 Other disorders of plasma-protein metabolism, not elsewhere classified; Z85.038 Personal history of other malignant neoplasm of large intestine; E11.22 Type 2 diabetes mellitus with diabetic chronic kidney disease; D63.1 Anemia in chronic kidney disease; I27.20 Pulmonary hypertension, unspecified; F32.9 Major depressive disorder, single episode, unspecified; F41.9 Anxiety disorder, unspecified; Z79.01 Long term (current) use of anticoagulants; Z79.4 Long term (current) use of insulin
CPT/HCPCS: 36415; 36600; 71045-TC; 76770-TC; 80048-TC; 80053-TC; 80076-TC; 82550-TC; 82728-TC; 82962-TC; 83540-TC; 83605-TC; 83735-TC; 83880; 83970; 84100-TC; 84155; 84165; 84439-TC; 84443-TC; 84484-TC; 85025-TC; 85378-TC; 86140-TC; 87040-TC; 87081-TC; 92526; 92611-TC; 93307-TC; 97112-TC; 97530-TC; C9803-CS; G0378; J1815; J1940; J2916; J3490; J7030; J7050; U0003-CS